=== PATIENT | male | born 1985 | race Caucasian/White ===

== ENCOUNTER 2021-09-16 08:15 | Emergency (ER) | payer BC ==
--- NOTE | 2021-09-16 08:24 | ERPHSYRPT ---
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 Initially, he had a sore throat which seemed to resolve but then several days ago he noticed increasing weakness, malaise, cough headache and body aches. Patient was sent to [facility] and was found to be mildly tachycardic. [facility] felt that he needed more of a work-up and sent the patient to the emergency department. Timing/Duration: week(s) (1.5) Severity: mild (To moderate) Associated Symptoms: nausea, cough, headaches, malaise, weakness, No vomiting, No chest pain Allergies/Adverse Reactions: diphenhydramine [From Benadryl] Allergy (Verified 09/16/21 08:28) Travel Risk - International Travel Have you traveled outside of the country in past 3 weeks: No - Coronavirus Screening Are you exhibiting any of the following symptoms?: Yes Symptoms: Cough: New Onset, Headaches/Body Aches/Fatigue Close contact with a COVID-19 positive Pt in past 14-21 Days: No - Review of Systems Constitutional: Weakness Eyes: No Symptoms Ears, Nose, & Throat: Throat Pain Respiratory: Cough Cardiac: No Symptoms Abdominal/Gastrointestinal: Nausea, No Abdominal Pain, No Vomiting, No Diarrhea Genitourinary Symptoms: No Symptoms Musculoskeletal: Arthralgias, Myalgias Skin: No Symptoms Neurological: No Symptoms Psychological: No Symptoms Endocrine: No Symptoms Hematologic/Lymphatic: No Symptoms Immunological/Allergic: No Symptoms All Other Systems: Reviewed and Negative - Past Medical History Pertinent Past Medical History: Yes - Past Surgical History Past Surgical History: Yes - Nursing Vital Signs Nursing Vital Signs: Initial Vital Signs Temperature 98.6 F 09/16/21 08:29 Pulse Rate 101 H 09/16/21 08:29 Respiratory Rate 18 09/16/21 08:29 Blood Pressure 168/99 09/16/21 08:29 O2 Sat by Pulse Oximetry 96 09/16/21 08:29 Pain Scale Pain Intensity 0 - Physical Exam General Appearance: no apparent distress, alert, anxiety, obese Eye Exam: PERRL/EOMI, eyes nml inspection Ears, Nose, Throat Exam: normal ENT inspection, moist mucous membranes Neck Exam: normal inspection, non-tender, supple, full range of motion Respiratory Exam: normal breath sounds, lungs clear, airway intact, No chest tenderness, No respiratory distress Cardiovascular Exam: regular rate/rhythm, normal heart sounds, normal peripheral pulses Gastrointestinal/Abdomen Exam: soft, normal bowel sounds, No tenderness Rectal Exam: not done Back Exam: normal inspection, normal range of motion, No CVA tenderness, No vertebral tenderness Extremity Exam: normal inspection, normal range of motion, pelvis stable Neurologic Exam: alert, oriented x 3, cooperative, sheet heater II-XII nml as tested, normal mood/affect, nml cerebellar function, nml station & gait, sensation nml Skin Exam: normal color, warm, dry Lymphatic Exam: No adenopathy SpO2 Interpretation: normal O2 Delivery: Room Air - Course Nursing assessment & vital signs reviewed: Yes EKG Interpreted by Me: RATE (103), Sinus Tach, Right [place] Deviation, Other (PACs present. No acute ischemic changes on today's EKG. No comparison EKG) Ordered Tests: Active Orders 24 hr Category Date Time Status EKG-ER Only STAT Care 09/16/21 08:30 Active IV Insertion STAT Care 09/16/21 08:30 Active Isolation, Initiate & Maintain STAT Care 09/16/21 08:31 Active Pulse Oximetry (ED) STAT Care 09/16/21 08:30 Active CHEST 1 VIEW (PORTABLE) Stat Exams 09/16/21 08:31 Completed BLOOD CULTURE Stat Lab 09/16/21 08:48 Received CBC W DIFF Stat Lab 09/16/21 08:43 Completed CMP Stat Lab 09/16/21 08:43 Received D-DIMER QUANTITATIVE Stat Lab 09/16/21 08:43 Completed Ferritin Stat Lab 09/16/21 08:43 Received INFLUENZA A+B FUNMI Stat Lab 09/16/21 08:50 Completed LDH-LACTATE DEHYDROGENASE Stat Lab 09/16/21 08:43 Received Lactic Acid Stat Lab 09/16/21 08:45 Completed MAGNESIUM Stat Lab 09/16/21 08:43 Received [place] Screen Stat Lab 09/16/21 08:43 Completed NT PRO BNP Stat Lab 09/16/21 08:43 Received TROPONIN Q3H Lab 09/16/21 08:45 Completed TROPONIN Q3H Lab 09/16/21 11:45 Ordered TROPONIN Q3H Lab 09/16/21 14:45 Ordered TROPONIN Q3H Lab 09/16/21 17:45 Ordered TROPONIN Q3H Lab 09/16/21 20:45 Ordered UA W/RFX UR CULTURE Stat Lab 09/16/21 08:37 Completed Medication Summary Generic Name Dose Route Start Last Admin Trade Name [place] PRN Reason Stop Dose Admin Sodium Chloride 1,000 mls @ 100 mls/hr 09/16/21 08:30 09/16/21 08:49 Sodium Chloride 0.9% 1000 Ml IV 10/16/21 08:29 100 mls/hr .Q10H ROBERT Administration Lab/Rad Data: Laboratory Result Diagrams 09/16/21 08:43 Laboratory Results 09/16/21 09/16/21 09/16/21 Range/Units 08:55 08:50 08:45 WBC (4.0-10.5) K/mm3 RBC (4.1-5.6) M/mm3 Hgb (12.5-18.0) gm/dl Hct (42-50) % MCV (78-100) fl MCH (26-32) pg MCHC (32-36) g/dl RDW (11.5-14.0) % Plt Count (150-450) K/mm3 MPV (7.5-11.0) fl Gran % (36.0-66.0) % Eos # (Auto) (0-0.5) Absolute Lymphs (auto) (1.0-4.6) Absolute Monos (auto) (0.0-1.3) Lymphocytes % (24.0-44.0) % Monocytes % (0.0-12.0) % Eosinophils % (0.00-5.0) % Basophils % (0.0-0.4) % Absolute Granulocytes (1.4-6.9) Basophils # (0-0.4) D-Dimer (215-500) ng/mL Lactic Acid (0.4-2.0) Troponin I < 0.012 (0.000-0.034) ng/mL Urine Color (YELLOW) Urine Appearance (CLEAR) Urine pH (5-6) Ur Specific [place] (1.005-1.025) Urine Protein (Negative) Urine Ketones (NEGATIVE) Urine Blood (0-5) Demetri/ul Urine Nitrite (NEGATIVE) Urine Bilirubin (NEGATIVE) Urine Urobilinogen (0-1) mg/dL Ur Leukocyte Esterase (NEGATIVE) Urine WBC (Auto) (0-5) /HPF Urine RBC (Auto) (0-2) /HPF U Epithel Cells (Auto) (FEW) /HPF Urine Bacteria (Auto) (NEGATIVE) /HPF Urine Mucus (Auto) (NEGATIVE) /HPF Urine Culture Reflexed (NO) Urine Glucose (NEGATIVE) mg/dL Monoscreen (Negative) Influenza Type A Ag NEGATIVE (NEGATIVE) Influenza Type B Ag POSITIVE (NEGATIVE) Group A Strep Antibody NOT DETECTED (NEGATIVE) 09/16/21 09/16/21 09/16/21 Range/Units 08:45 08:43 08:43 WBC (4.0-10.5) K/mm3 RBC (4.1-5.6) M/mm3 Hgb (12.5-18.0) gm/dl Hct (42-50) % MCV (78-100) fl MCH (26-32) pg MCHC (32-36) g/dl RDW (11.5-14.0) % Plt Count (150-450) K/mm3 MPV (7.5-11.0) fl Gran % (36.0-66.0) % Eos # (Auto) (0-0.5) Absolute Lymphs (auto) (1.0-4.6) Absolute Monos (auto) (0.0-1.3) Lymphocytes % (24.0-44.0) % Monocytes % (0.0-12.0) % Eosinophils % (0.00-5.0) % Basophils % (0.0-0.4) % Absolute Granulocytes (1.4-6.9) Basophils # (0-0.4) D-Dimer 430 (215-500) ng/mL Lactic Acid 0.8 (0.4-2.0) Troponin I (0.000-0.034) ng/mL Urine Color (YELLOW) Urine Appearance (CLEAR) Urine pH (5-6) Ur Specific [place] (1.005-1.025) Urine Protein (Negative) Urine Ketones (NEGATIVE) Urine Blood (0-5) Demetri/ul Urine Nitrite (NEGATIVE) Urine Bilirubin (NEGATIVE) Urine Urobilinogen (0-1) mg/dL Ur Leukocyte Esterase (NEGATIVE) Urine WBC (Auto) (0-5) /HPF Urine RBC (Auto) (0-2) /HPF U Epithel Cells (Auto) (FEW) /HPF Urine Bacteria (Auto) (NEGATIVE) /HPF Urine Mucus (Auto) (NEGATIVE) /HPF Urine Culture Reflexed (NO) Urine Glucose (NEGATIVE) mg/dL Monoscreen NEGATIVE (Negative) Influenza Type A Ag (NEGATIVE) Influenza Type B Ag (NEGATIVE) Group A Strep Antibody (NEGATIVE) 09/16/21 09/16/21 Range/Units 08:43 08:37 WBC 4.5 (4.0-10.5) K/mm3 RBC 5.32 (4.1-5.6) M/mm3 Hgb 15.9 (12.5-18.0) gm/dl Hct 47.2 (42-50) % MCV 88.7 (78-100) fl MCH 29.9 (26-32) pg MCHC 33.7 (32-36) g/dl RDW 13.2 (11.5-14.0) % Plt Count 152 (150-450) K/mm3 MPV 10.6 (7.5-11.0) fl Gran % 57.0 (36.0-66.0) % Eos # (Auto) 0 (0-0.5) Absolute Lymphs (auto) 1.28 (1.0-4.6) Absolute Monos (auto) 0.63 (0.0-1.3) Lymphocytes % 28.7 (24.0-44.0) % Monocytes % 14.1 H (0.0-12.0) % Eosinophils % 0.0 (0.00-5.0) % Basophils % 0.2 (0.0-0.4) % Absolute Granulocytes 2.54 (1.4-6.9) Basophils # 0.01 (0-0.4) D-Dimer (215-500) ng/mL Lactic Acid (0.4-2.0) Troponin I (0.000-0.034) ng/mL Urine Color ERIS (YELLOW) Urine Appearance CLEAR (CLEAR) Urine pH 5.0 (5-6) Ur Specific [place] 1.031 (1.005-1.025) Urine Protein 30 (Negative) Urine Ketones TRACE (NEGATIVE) Urine Blood NEGATIVE (0-5) Demetri/ul Urine Nitrite NEGATIVE (NEGATIVE) Urine Bilirubin NEGATIVE (NEGATIVE) Urine Urobilinogen NEGATIVE (0-1) mg/dL Ur Leukocyte Esterase NEGATIVE (NEGATIVE) Urine WBC (Auto) 3-5 (0-5) /HPF Urine RBC (Auto) NONE (0-2) /HPF U Epithel Cells (Auto) NONE (FEW) /HPF Urine Bacteria (Auto) RARE (NEGATIVE) /HPF Urine Mucus (Auto) SLIGHT (NEGATIVE) /HPF Urine Culture Reflexed NO (NO) Urine Glucose NEGATIVE (NEGATIVE) mg/dL Monoscreen (Negative) Influenza Type A Ag (NEGATIVE) Influenza Type B Ag (NEGATIVE) Group A Strep Antibody (NEGATIVE) - Progress Progress: improved Progress Note: 09/16/21 09:46 Chest x-ray shows mild mid to lower lung patchy groundglass airspace disease right side greater than left without consolidation or large effusion. Counseled pt/family regarding: lab results, diagnosis, need for follow-up, rad results - Departure Departure Disposition: Home Clinical Impression: Mild dehydration, Influenza B Condition: Stable Critical Care Time: No Additional Instructions: Drink plenty of fluids. Quarantine yourself until the results of your COVID-[address] Byers's office for results in 48 to 72 hours. Use Tylenol and ibuprofen for fever control and aches and pains.
[2021-09-16] MEDS ORDERED: Sodium Chloride 0.9% 1000 ML 1,000 ML IV SCH (08:30)
[2021-09-16] MEDS ORDERED: Sodium Chloride 0.9% 1000 ML 0 ML ONE (08:49)
[2021-09-16 09:03] LABS: Appearance CLEAR (CLEAR); Bilirubin NEGATIVE (NEGATIVE); Blood NEGATIVE Ery/ul (0-5); Glucose NEGATIVE (NEGATIVE); Ketones TRACE (NEGATIVE); Leukocyte Esterase NEGATIVE (NEGATIVE); Mucus SLIGHT /HPF (NEGATIVE); Nitrite NEGATIVE (NEGATIVE); Protein,Urine Dip 30 (Negative); Specific Gravity 1.031 (1.005-1.025); Urobilinogen NEGATIVE mg/dL (0-1)
[2021-09-16 09:07] LABS: Absolute Neutrophil Ct (ANC) 2.54 (1.4-6.9); Basophil (Absolute #) 0.01 (0-0.4); Eosinophil (Absolute #) 0 (0-0.5); Hematocrit 47.2 % (42-50); Hemoglobin 15.9 gm/dl (12.5-18.0); Lymphocyte (Absolute #) 1.28 (1.0-4.6); Lymphocytes % 28.7 % (24.0-44.0); Mean Cell Volume 88.7 fl (78-100); Mean Corpuscular Hemoglobin 29.9 pg (26-32); Mean Corpuscular Hgb Concent. 33.7 g/dl (32-36); Mean Platelet Volume 10.6 fl (7.5-11.0); Monocyte (Absolute #) 0.63 (0.0-1.3); Monocytes % 14.1 % (0.0-12.0); Platelet Count 152 K/mm3 (150-450); Red Blood Count 5.32 M/mm3 (4.1-5.6); Red Cell Distribution Width 13.2 % (11.5-14.0); White Blood Count 4.5 K/mm3 (4.0-10.5)
[2021-09-16 09:11] LABS: Bacteria RARE /HPF (NEGATIVE)
--- NOTE | 2021-09-16 09:21 | XRAY ---
Indication: Cough. Comparison: None Portable apical lordotic chest demonstrates mild mid to lower lung patchy groundglass airspace disease right greater than left without consolidation/large effusion. Heart not enlarged. Bony thorax intact.
[2021-09-16 09:38] VITALS: O2SAT 97
[2021-09-16 09:56] LABS: INFLUENZA A NEGATIVE (NEGATIVE)
[2021-09-16 09:57] LABS: INFLUENZA B POSITIVE (NEGATIVE)
[2021-09-16] MEDS ORDERED: Sodium Chloride 0.9% 1000 ML 1,000 ML ONE (09:58)
[2021-09-16 10:04] LABS: ALBUMIN 3.7 g/dL (3.5-5.0); ALKALINE PHOSPHATASE 103 U/L (38-126); ANION GAP 11.6 MEQ/L (5-15); BLOOD UREA NITROGEN 8 mg/dL (9-20); CHLORIDE 104 mmol/L (98-107); Calcium 8.4 mg/dL (8.4-10.2); Carbon Dioxide 30 mmol/L (22-30); Creatinine 1 0.55 mg/dL (0.66-1.25); EST GLOMERULAR FILTRATION RATE > 60.0 ML/MIN; Ferritin 831 ng/mL (17.9-464); Glucose 92 mg/dL (74-106); LDH-LACTATE DEHYDROGENASE 320 U/L (120-246); MAGNESIUM 1.8 mg/dL (1.6-2.3); NT PRO BNP 161 pg/mL (0-450); Potassium 3.5 mmol/L (3.5-5.1); SGOT/AST 90 U/L (17-59); SGPT/ALT 118 U/L (0-50); SODIUM 142 mmol/L (137-145); Total Protein 6.6 g/dL (6.3-8.2)
[2021-09-16 10:29] VITALS: BP 142/83; PULSE 89
== END 2021-09-16 11:05 | disposition home or self-care (01) ==
LOC: ED 08:15
DX: J10.1 Influenza due to other identified influenza virus with other respiratory manifestations (principal); E86.0 Dehydration; R53.1 Weakness; R05.9 Cough, unspecified; R51.9 Headache, unspecified; M79.10 Myalgia, unspecified site
CPT/HCPCS: 36000; 36415; 71045; 80053; 81001; 82728; 83605; 83615; 83735; 83880; 84484; 85025; 85379; 86308; 87040; 87400; 87651; 93005; 94760; 99284; U0003